=== PATIENT | female | born 1980 | race Caucasian/White ===

== ENCOUNTER → 2024-03-10 12:43 | Outpatient (REF) | payer OTHER, SELFPAY | LOC: HWRAD 12:43 | PROVIDERS: ATTENDING PHYSICIAN Physician Assistant; FAMILY PHYSICIAN Family Medicine | DX: N83.202 Unspecified ovarian cyst, left side (principal); R10.2 Pelvic and perineal pain | CPT/HCPCS: 76830; 76856 ==

== ENCOUNTER → 2024-03-18 18:03 | Outpatient (REF) | payer OTHER, SELFPAY | LOC: WDC 18:03 | PROVIDERS: ATTENDING PHYSICIAN Physician Assistant | DX: Z12.31 Encounter for screening mammogram for malignant neoplasm of breast (principal) | CPT/HCPCS: 77063; 77067 ==

== ENCOUNTER → 2025-01-19 14:21 | Outpatient (REF) | payer OTHER, SELFPAY | LOC: HWRAD 14:21 | PROVIDERS: ATTENDING PHYSICIAN Physician Assistant | DX: N83.201 Unspecified ovarian cyst, right side (principal) | CPT/HCPCS: 76830; 76856 ==

== ENCOUNTER → 2025-02-16 07:22 | Outpatient (REF) | payer OTHER, SELFPAY | LOC: MRI 07:22 | PROVIDERS: ATTENDING PHYSICIAN Orthopaedic Surgery; FAMILY PHYSICIAN Family Medicine | DX: M25.562 Pain in left knee (principal) | CPT/HCPCS: 73721 ==